=== PATIENT | female | born 1980 | race Caucasian/White ===

== ENCOUNTER 2018-06-17 09:53 | Emergency (ER) | payer OTHER ==
--- NOTE | 2018-06-17 10:09 | ED Physician Documentation ---
Fall - HISTORIAN Historian: patient - HPI Stated Complaint: fall last night around 7 pm Chief Complaint: Fall Onset: yesterday Where: home Context: slipped r: mild Associated Symptoms:: brief (seconds) Location of Pain/Injury: head, neck, lower back Injury to Right Extremity: none Injury to Left Extremity: none Further Comments: yes (per the pt she was walking her dog down a long flight of stairs when the dog ran and she slipped down the stairs. She woke after less than seconds she believes to her dog licking her face and she states she has felt dizzy and had a mild headache with slight nausea since. she also notes mild pain with palpation to her neck (FROM) and to her lower back (no loss of control of bowel or bladder)) - ROS CONST: no problems NEURO: dizziness MS/SKIN/LYMPH: neck pain, back pain. denies: weakness, numbness, ankle swelling, leg swelling, rash EYES/ENT: denies: problems with vision, nasal drainage CVS/RESP: denies: chest pain, shortness of breath, palpitations GI/: denies: problems urinating, nausea, vomiting - PAST HX Past History: none Immunizations: UTD Allergies/Adverse Reactions: Allergies Allergy/AdvReac Type Severity Reaction Status Date / Time No Known Drug Allergies Allergy Verified 08/01/14 12:22 Home Medications: Ambulatory Orders Medication Instructions Recorded NK 06/17/18 - SOCIAL HX Smoking History: cigarettes Alcohol Use: none Drug Use: none - FAMILY HX Family History: none - VITAL SIGNS Vital Signs: Vital Signs Temp Pulse Resp BP Pulse Ox 128/67 08/01/14 12:43 - REVIEWED ASSESSMENTS Nursing Assessment Reviewed: Yes Vitals Reviewed: Yes Progress - Progress Progress: 1114: discussed results and plan. She is agreeable DG ED Results Lab/Radiology - Radiology Radiology Impressions: Examination: CT head without contrast History: TRIPPED AND FELL LAST NIGHT HITTING BACK OF HEAD, UNCONSCIOUS FOR SHORT TIME. HEADACHE WITH NECK AND LOWER BACK PAIN TODAY. DENIES CHANCE OF , HX OF TUBAL LIGATION. Comparison exam: None available Technique: Noncontrast head CT protocol. Findings: Ventricles and sulci are appropriate for patient age. Cerebrocerebellar parenchyma demonstrates normal attenuation. No evidence for parenchymal hemorrhage. No evidence for mass or mass effect. No midline shift. No extra axial fluid collections. Partial visualization of the paranasal sinuses, mastoid air cells, orbits, skull and scalp without gross irregularity. Impression: No acute parenchymal process. No hemorrhage. Electronically signed on Jun 17, 2018 10:57:57 AM CDT by: Enrique Stafford Examination: CT cervical spine History: TRIPPED AND FELL LAST NIGHT HITTING BACK OF HEAD, UNCONSCIOUS FOR SHORT TIME. HEADACHE WITH NECK AND LOWER BACK PAIN TODAY. DENIES CHANCE OF , HX OF TUBAL LIGATION. Comparison exams: None provided Technique: CT cervical spine axial imaging with sagittal and coronal reconst ruction Findings: Sagittal reconstruction demonstrates normal height and alignment the cervical vertebral bodies. No anterior compression deformity. Few scattered degenerative spurs. Coronal reconstruction does not demonstrate locked or perched facets. Atlantoaxial degenerative changes. Streak artifact from dental hardware. Axial imaging obtained from the skull base through T1 Lamina and pedicles are intact. No ossific density within the central canal. No prevertebral soft tissue abnormality. Impression: Mild degenerative changes. No evidence for acute osseous process. Electronically signed on Jun 17, 2018 11:00:49 AM CDT by: Enrique Stafford Examination: CT lumbar spine History: TRIPPED AND FELL LAST NIGHT HITTING BACK OF HEAD, UNCONSCIOUS FOR SHORT TIME. HEADACHE WITH NECK AND LOWER BACK PAIN TODAY. DENIES CHANCE OF , HX OF TUBAL LIGATION. Comparison exams: None available. Technique: CT lumbar spine axial imaging with sagittal and coronal reconstruction Findings: Sagittal reconstruction demonstrates normal height and alignment the lumbar vertebral bodies. No anterior compression deformity. Mild anterior and lateral osteophytes. Coronal reconstruction does not demonstrate locked or perched facets. Axial imaging obtained from T12 through the sacrum Lamina and pedicles are intact. No ossific density within the central canal. No prevertebral soft tissue abnormality. Impression: No evidence for vertebral body compression fracture Electronically signed on Jun 17, 2018 11:05:50 AM CDT by: Enrique Stafford Fall Physical Exam - Physical Exam General Appearance: no acute distress, alert Head: non-tender, no swelling, no obvious injury Neck: pain with neck movement (flexion ) Eye: ALMAS Resp/CVS: chest non-tender, breath sounds nml, no resp. distress, heart sounds nml. No: rib tenderness Abdomen: soft, normal bowel sounds, no distension, non-tender Neuro: oriented x3, CN's nml as tested, sensation nml, motor nml, mood/affect nml, vp ancillary nml, reflexes nml, vp ancillary symmetrical Skin: color nml, no rash Back: normal inspection, vertebral tenderness (tenderness lumbar spine bilaterally ) Extremities: atraumatic Joint: joints nml, nml ROM, Nml gait/weight bearing - [place] Coma Score Eyes Open: Spontaneous Speech: Oriented Motor: Obeys Commands Discharge Clincal Impression: Fall Qualifiers: Encounter type: initial encounter Qualified Code(s): W19.XXXA - Unspecified fall, initial encounter Referrals: Primary Doctor,No [Primary Care Provider] - 2 Days Comments: 1. Cyclobenzaprine 10 mg take 1 by mouth every 8 hours as needed for pain 2. Ibuprofen 800 mg take 1 by mouth every 12 hours as needed for pain 3. Tramadol 50 mg take 1 by mouth every 12 hours as needed for pain 4. Heat or ice as needed for pain 5. Increase fluids 6. Rest 7. See PCP in 2 -4 days 8. Return to ER for follow up Condition: Stable Disposition: 01 HOME, SELF-CARE Decision to Admit: NO Date of Decison to Admit: 06/17/18 Decision Time: 11:20
--- NOTE | 2018-06-17 11:02 | Diagnostic Imaging Report ---
ADENIKE GUSMAN [facility] [address] [facility] [address] [place], [place]. [address] Report Submission Date: Jun 17, 2018 10:57:57 AM CDT Patient Study Name: ESME STALEY Date: Jun 17, 2018 10:22:43 AM CDT Modality Type: CT Gender: F Description: CT BRAIN W/O CONTRAST : 76 Institution: [facility] Physician: ADENIKE GUSMAN Examination: CT head without contrast History: TRIPPED AND FELL LAST NIGHT HITTING BACK OF HEAD, UNCONSCIOUS FOR SHORT TIME. HEADACHE WITH NECK AND LOWER BACK PAIN TODAY. DENIES CHANCE OF , HX OF TUBAL LIGATION. Comparison exam: None available Technique: Noncontrast head CT protocol. Findings: Ventricles and sulci are appropriate for patient age. Cerebrocerebellar parenchyma demonstrates normal attenuation. No evidence for parenchymal hemorrhage. No evidence for mass or mass effect. No midline shift. No extra axial fluid collections. Partial visualization of the paranasal sinuses, mastoid air cells, orbits, skull and scalp without gross irregularity. Impression: No acute parenchymal process. No hemorrhage. Electronically signed on Jun 17, 2018 10:57:57 AM CDT by: Enrique ANGEL
--- NOTE | 2018-06-17 11:03 | Diagnostic Imaging Report ---
ADENIKE GUSMAN [facility] [address] [facility] [address] [place], [place]. [address] Report Submission Date: Jun 17, 2018 11:00:49 AM CDT Patient Study Name: ESME STALEY Date: Jun 17, 2018 10:26:05 AM CDT Modality Type: CT Gender: F Description: CT C-SPINE W/O CONTRAS : 76 Institution: [facility] Physician: ADENIKE GUSMAN Examination: CT cervical spine History: TRIPPED AND FELL LAST NIGHT HITTING BACK OF HEAD, UNCONSCIOUS FOR SHORT TIME. HEADACHE WITH NECK AND LOWER BACK PAIN TODAY. DENIES CHANCE OF , HX OF TUBAL LIGATION. Comparison exams: None provided Technique: CT cervical spine axial imaging with sagittal and coronal reconstruction Findings: Sagittal reconstruction demonstrates normal height and alignment the cervical vertebral bodies. No anterior compression deformity. Few scattered degenerative spurs. Coronal reconstruction does not demonstrate locked or perched facets. Atlantoaxial degenerative changes. Streak artifact from dental hardware. Axial imaging obtained from the skull base through T1 Lamina and pedicles are intact. No ossific density within the central canal. No prevertebral soft tissue abnormality. Impression: Mild degenerative changes. No evidence for acute osseous process. Electronically signed on Jun 17, 2018 11:00:49 AM CDT by: Enrique ANGEL
--- NOTE | 2018-06-17 11:09 | Diagnostic Imaging Report ---
ADENIKE GUSMAN [facility] [address] [facility] [address] [place], [place]. [address] Report Submission Date: Jun 17, 2018 11:05:50 AM CDT Patient Study Name: ESME STALEY Date: Jun 17, 2018 10:30:02 AM CDT Modality Type: CT Gender: F Description: CT L-SPINE W/O CONTRAS : 76 Institution: [facility] Physician: ADENIKE GUSMAN Examination: CT lumbar spine History: TRIPPED AND FELL LAST NIGHT HITTING BACK OF HEAD, UNCONSCIOUS FOR SHORT TIME. HEADACHE WITH NECK AND LOWER BACK PAIN TODAY. DENIES CHANCE OF , HX OF TUBAL LIGATION. Comparison exams: None available. Technique: CT lumbar spine axial imaging with sagittal and coronal reconstruction Findings: Sagittal reconstruction demonstrates normal height and alignment the lumbar vertebral bodies. No anterior compression deformity. Mild anterior and lateral osteophytes. Coronal reconstruction does not demonstrate locked or perched facets. Axial imaging obtained from T12 through the sacrum Lamina and pedicles are intact. No ossific density within the central canal. No prevertebral soft tissue abnormality. Impression: No evidence for vertebral body compression fracture Electronically signed on Jun 17, 2018 11:05:50 AM CDT by: Enrique ANGEL
[2018-06-17 11:35] VITALS: BP 124/69
== END 2018-06-17 11:28 | disposition home or self-care (01) ==
LOC: ED 09:53
DX: R51 Headache (principal); W10.9XXA Fall (on) (from) unspecified stairs and steps, initial encounter; Y93.89 Activity, other specified; Y92.008 Other place in unspecified non-institutional (private) residence as the place of occurrence of the external cause
CPT/HCPCS: 70450; 72125; 72131; 99284; 99285